=== PATIENT | female | born 1995 | race American Indian/Alaskan Native ===

== ENCOUNTER 2016-12-10 17:44 | Emergency (ER) | payer OTHER ==
--- NOTE | 2016-12-10 19:28 | XRay Report ---
FINAL REPORT PROCEDURE: XR ANKLE 3 RT TECHNIQUE: Right ankle, three views HISTORY: RIGHT ANKLE INJURY / PAIN COMPARISON: No prior studies are available for comparison. FINDINGS: There is lateral soft tissue swelling. No acute fracture or dislocation is seen. Ankle mortise and talar dome are intact. IMPRESSION: No acute fracture or dislocation is identified
--- NOTE | 2016-12-10 19:36 | Emergency Department Report ---
HPI - General Chief Complaint: Extremity Injury, Lower Time Seen by Provider: 12/10/16 19:21 - HPI HPI: Patient is a 21-year-old female presents to ED complaining of right ankle pain times today. Patient states couple of hours ago she was [place] [employer] [place] on a tr[place] when she landed wrong. Patient states mild throbbing-type aching pain on right ankle. Patient states pain with applying pressure, weightbearing to her right foot. Patient states she is able to move her foot and ankle. She denies fevers/chills/nausea/vomiting/abdominal pain/chest pain/shortness of breath or any other problems. ED Past Medical Hx - Past Medical History Previous Medical History?: No - Surgical History Past Surgical History?: No - Social History Smoking Status: Never Smoker Substance Use Type: None - Medications Home Medications: Home Medications Medication Instructions Recorded Confirmed Last Taken Type Ibuprofen [Motrin 800 MG tab] 800 mg PO TID #24 tablet 12/10/16 Unknown Rx ED Review of Systems ROS: Stated complaint: SPRAIN RT ANKLE Other details as noted in HPI Constitutional: denies: chills, fever Eyes: denies: eye pain, eye discharge, vision change ENT: denies: ear pain, throat pain Respiratory: denies: cough, shortness of breath, wheezing Cardiovascular: denies: chest pain, palpitations Endocrine: no symptoms reported Gastrointestinal: denies: abdominal pain, nausea, diarrhea Genitourinary: denies: urgency, dysuria, discharge Musculoskeletal: arthralgia. denies: back pain, joint swelling Skin: denies: rash, lesions Neurological: denies: headache, weakness, paresthesias Psychiatric: denies: anxiety, depression Hematological/Lymphatic: denies: easy bleeding, easy bruising Physical Exam - Physical Exam Vital Signs: Vital Signs 12/10/16 17:56 Temperature 98.4 F Pulse Rate 116 H Respiratory 17 Rate Blood Pressure 147/94 O2 Sat by Pulse 100 Oximetry Physical Exam: GENERAL: Alert and oriented x3, no apparent distress, Normal Gait, atraumatic. HEAD: Head is normocephalic and a-traumatic. LUNGS: Symetrical with respiration, No wheezing, no rales or crackles, CTAB. HEART: S1, S2 present, regular rate and rhythm without murmur, no rubs, no gallops. EXTREMITIES/MUSCULOSKELETAL: No cyanosis, clubbing, rash, lesions or edema. Full ROM bilaterally. Pedal Pulses 2+ bilaterally. LE 5+ strength bilaterally , ankle and knee joints are intact. Ankle joint is intact no deformity no erythema, lateral aspect of the right ankle moderately swollen, mild tenderness to palpation of the lateral aspect of the ankle. NEUROLOGIC: The patient is cooperative with no focal neurologic deficits. Cranial nerves II through XII are grossly intact. Normal speech. Normal sensation in bilateral lower extremities. SKIN: Warm and dry, No lesions, No ulceration or induration present. ED Course Vital Signs 12/10/16 17:56 Temperature 98.4 F Pulse Rate 116 H Respiratory 17 Rate Blood Pressure 147/94 O2 Sat by Pulse 100 Oximetry ED Medical Decision Making - Radiology Data Radiology results: report reviewed, image reviewed FINAL REPORT PROCEDURE: XR ANKLE 3 RT TECHNIQUE: Right ankle, three views HISTORY: RIGHT ANKLE INJURY / PAIN COMPARISON: No prior studies are available for comparison. FINDINGS: There is lateral soft tissue swelling. No acute fracture or dislocation is seen. Ankle mortise and talar dome are intact. IMPRESSION: No acute fracture or dislocation is identified Transcribed By: [facility] Dictated By: SHRUTI ROSALES M.D. Electronically Authenticated By: SHRUTI ROSALES M.D. Signed Date/Time: 12/10/161923 - Medical Decision Making -year-old female presents with right ankle strain X-ray of the foot and ankle ordered. X-ray is showing above Discussed results with the patient. Discussed patient will apply ice 3 times a day. Discuss rice protocol. Vital signs are normal patient is in no acute distress Discussed the patient to follow up with primary care physician Critical care attestation.: If time is entered above; I have spent that time in minutes in the direct care of this critically ill patient, excluding procedure time. ED Disposition Clinical Impression: Right ankle sprain Qualifiers: Encounter type: initial encounter Involved ligament of ankle: unspecified ligament Qualified Code(s): S93.401A - Sprain of unspecified ligament of right ankle, initial encounter Disposition: TO HOME OR SELFCARE Is pt being admited?: No Does the pt Need Aspirin: No Condition: Stable Instructions: Ankle Exercises (GEN), Arthralgia (ED), RICE Therapy (ED), Ankle Sprain (ED) Prescriptions: Ibuprofen [Motrin 800 MG tab] 800 mg PO TID #24 tablet Referrals: PRIMARY CARE, [Primary Care Provider] - 3-5 Days [facility] [Outside] - 3-5 Days [facility] [Outside] - 3-5 Days [facility] [Outside] - 3-5 Days Forms: Work/School Release Form(ED) Time of Disposition: 19:55
[2016-12-10] MEDS: MOTRIN PO ONE (19:50)
[2016-12-10 20:22] VITALS: BP 127/73
== END 2016-12-10 20:22 | disposition home or self-care (01) ==
LOC: ED 17:44
DX: S93.401A Sprain of unspecified ligament of right ankle, initial encounter (principal); W17.89XA Other fall from one level to another, initial encounter; Y93.9 Activity, unspecified; Y92.9 Unspecified place or not applicable; Y99.9 Unspecified external cause status
CPT/HCPCS: 99283